=== PATIENT | female | born 1985 | race Caucasian/White ===

== ENCOUNTER 2024-07-19 23:04 | Emergency (ER) | payer OTHER ==
[~2024-07-19] VITALS: Ht 182.9 cm; Wt 86.2 kg
[2024-07-19 23:05] VITALS: PULSE 102; RESP 17; TEMP 102.7
[2024-07-19] MEDS ORDERED: ACETAMINOPHEN 325 MG TAB ONE (23:42)
[2024-07-19] MEDS: ACETAMINOPHEN 325 MG TAB PO ONE (23:42)
[2024-07-20] MEDS ORDERED: KEFLEX125 MG/5 M PO (00:14)
[2024-07-20] MEDS: BACITRACIN ZINC 0.9GM TP ONE (01:00)
[2024-07-20] MEDS: CEPHALEXIN MONOHYDRATE 250 MG CAP PO ONE (01:00)
[2024-07-20 01:01] VITALS: BP 121/76; PULSE 84; RESP 17; TEMP 98.3; O2SAT 100
== END 2024-07-20 00:25 | disposition home or self-care (01) ==
LOC: FSED 23:19
DX: R50.9 Fever, unspecified (principal); J02.0 Streptococcal pharyngitis; F90.9 Attention-deficit hyperactivity disorder, unspecified type; F41.9 Anxiety disorder, unspecified; Z11.52 Encounter for screening for COVID-19; F17.210 Nicotine dependence, cigarettes, uncomplicated
CPT/HCPCS: 0223U; 83518; 87400; 99284